=== PATIENT | female | born 1985 | race Caucasian/White ===

== ENCOUNTER 2020-06-22 17:09 | Emergency (ER) | payer OTHER ==
[~2020-06-22] VITALS: Ht 167.6 cm; Wt 88.5 kg
[~2020-06-22 17:09] MED LIST: ANAPROX DS550 MG PO; ATIVAN1 MG PO; BUSPAR15 MG PO; CIPROFLOXACIN500 MG PO; CLARITIN10 MG PO; CLINDAMYCIN150 MG PO; COMPAZINE10 MG PO; DARVOCET N 1001 TAB PO; DIAZEPAM5 MG PO; ESTRACE PO; FENOFIBRATE145 M1 PO; FIORICET 325 MG1 TAB PO; FLAGYL I.V.500 MG PO; FLEXERIL10 MG PO; FLONASE 0.05% 121 EA NAS; HYDROCODONE BIT1 T11 PO; IMITREX25 MG PO; KEFLEX500 MG PO; LEVOFLOXACIN500 MG PO; LYSTEDA650 MG PO; MACROBID100 M1 PO; MAGNESIUM400 MG PO; MOTRIN800 MG PO; MS CONTIN30 MG PO; NKHM; PERCOCET 325 MG1 TA2 PO; PHENERGAN W/ DE30 ML PO; PREDNICOT10 MG PO; PREDNICOT20 MG PO; PREMARIN0.3 M1 PO; PROAIR HFA0.09 MG/AC INH; PROVERA2.5 MG PO; PYRIDIUM200 M1 PO; PYRIDIUM200 MG PO; RUFEN800 MG PO; SYNTHROID0.05 MG PO; Synthroid,Levo50 MCG PO; TESSALON PERLE200 MG PO; TOBRADEX 0.1%-0.5 ML OPH; TOPIRAMATE25 M1 PO; TRAMADOL HCL50 MG PO; ULTRAM50 MG PO; VISTARIL25 MG PO; XANAX1 MG PO; ZANTAC150 MG PO; ZITHROMAX Z PA250 MG PO; ZOFRAN ODT4 MG PO; ZOFRAN ODT4 MG SL; ZOFRAN4 MG PO; ZOLOFT25 MG PO; Zofran4 MG PO
[2020-06-22] MEDS ORDERED: CYCLOBENZAPRINE5 M3 PO (19:56)
== END 2020-06-22 20:12 | disposition home or self-care (01) ==
LOC: ED 17:09
DX: S30.0XXA Contusion of lower back and pelvis, initial encounter (principal); M62.830 Muscle spasm of back; Z88.2 Allergy status to sulfonamides; Z88.5 Allergy status to narcotic agent; Z88.8 Allergy status to other drugs, medicaments and biological substances; Z88.1 Allergy status to other antibiotic agents; V49.40XA Driver injured in collision with unspecified motor vehicles in traffic accident, initial encounter; Y93.89 Activity, other specified; Y92.89 Other specified places as the place of occurrence of the external cause; Y99.8 Other external cause status